=== PATIENT | female | born 1995 | race Caucasian/White ===

== ENCOUNTER 2020-01-12 09:49 | Outpatient (RCR) | payer BC, SELFPAY ==
[2020-01-12 11:16] LABS: Hematocrit 33.2 % (37.0-47.0)
[2020-01-12 13:14] LABS: Glucose 1 Hour PP 50gm Dose 219 mg/dL
[2020-01-12] MEDS: RHO(D) IMMUNE GLOBULIN 300 MCG SYRINGE IM (13:52)
[2020-01-12 13:53] LABS: HIV 1/2 Ab P24 Ag Result Negative (Negative)
[2020-01-13 07:54] LABS: Rapid Plasma Reagin Non-Reactive (NonReactive)
== END 2020-04-11 23:59 | disposition home or self-care (01) ==
LOC: ANHLAB 09:49
PROVIDERS: Visit Provider Advanced Practice Midwife
DX: Z29.13 Encounter for prophylactic Rho(D) immune globulin (principal); O36.0130 Maternal care for anti-D [Rh] antibodies, third trimester, not applicable or unspecified; Z11.4 Encounter for screening for human immunodeficiency virus [HIV]; Z3A.00 Weeks of gestation of pregnancy not specified
CPT/HCPCS: 36415; 82947; 85014; 85018; 85461; 86592; 86703; 90384; 96372; G0432; J2790

== ENCOUNTER 2020-03-09 11:05 | Outpatient (RCR) | payer BC, SELFPAY ==
[2020-03-05 21:49] VITALS: BP 120/76; PULSE 85
--- NOTE | ~2020-03-09 | US_ITS ---
EXAMINATION: US OB BPP wo non-stress DATE: 03/05/2020 17:46 INDICATION: Nonreactive nonstress test. Third trimester. TECHNIQUE: Real-time pelvic ultrasound was performed. COMPARISON: None. FINDINGS: There is a single living fetus in vertex presentation. The placenta is anterior. heart rate is 139 beats per minute (bpm). Biophysical profile performed by the technologist: breathing (30 sec sustained breathing in 30 minutes): 2 out of 2 movement (3 gross body movements in 30 minutes): 2 out of 2 tone (one episode of xfxtjui-apcbgqtpm-vfqmyhr limb movement): 2 out of 2 Amniotic fluid pocket (2 cm): 2 out of 2 Total score: 8 out of 8 IMPRESSION: 1. Single living fetus in vertex presentation. 2. Biophysical profile 8 out of 8. Reviewed, dictated and finalized at location A.
[2020-03-09 19:05] VITALS: BP 126/79; PULSE 88
== END 2020-03-21 07:35 | disposition home or self-care (01) ==
LOC: ANHOBOP 11:05
PROVIDERS: Visit Provider Obstetrics & Gynecology
DX: O24.419 Gestational diabetes mellitus in pregnancy, unspecified control (principal); Z3A.35 35 weeks gestation of pregnancy; Z3A.36 36 weeks gestation of pregnancy
CPT/HCPCS: 59025; 76819

== ENCOUNTER 2020-03-10 10:40 | Outpatient (CLI) | payer BC, SELFPAY ==
[2020-03-10 11:25] VITALS: BP 131/83; PULSE 99
--- NOTE | 2020-03-10 11:44 | PC.NURSE ---
Pt came in from birthing class stating that she had some leaking while in the shower this morning after having sex. Pt denies any leaking currently, stated her underwear were wet once when she went to the restroom. Pt denies having contractions. ROM plus negative, NST reactive. on unit, reviewed strip and gave discharge order home. Pt instructed to come back if she thinks her water broke, doesn't feel the baby move, has bleeding, or has more intense contractions that are closer together.
== END 2020-03-10 11:35 | disposition home or self-care (01) ==
LOC: ANHOBOP 11:23 → ANHLDR 11:24
PROVIDERS: Visit Provider Obstetrics & Gynecology
DX: O42.90 Premature rupture of membranes, unspecified as to length of time between rupture and onset of labor, unspecified weeks of gestation (principal); Z3A.00 Weeks of gestation of pregnancy not specified
CPT/HCPCS: 59025; 84112; 99199

== ENCOUNTER 2020-03-14 06:06 | Inpatient (IN) | payer BC, SELFPAY ==
[2020-03-14] VITALS (94 sets, daily range): BP systolic 103–136; BP diastolic 63–86; PULSE 64–102; TEMP 36.3–36.6; O2SAT 99–100; BMI 28.3
--- NOTE | 2020-03-14 07:12 | WPDHPUPDATE1 ---
History and Physical Update Update Date/Time: 03/14/20 07:12 This patient is a 24 y/o G1 at 37 weeks with SROM - to augment. Reassuring status.GBS - Neg History and Physical has been reviewed, including an updated exam of the patient. There are NO changes in the patient's condition. Risks, benefits, and alternatives have been discussed and questions answered. Patient agrees to proceed with procedure.
--- NOTE | 2020-03-14 07:13 | WPDANESEPP ---
Anes - Eval Pre Procedure Procedure: Labor Epidural <Kj Ibarra CRNA - Last Filed: 03/14/20 07:13> labor pain management <Eleonora Avendano CRNA - Last Filed: 03/14/20 11:16> Date/Time: 03/14/20 07:13 <Kj Ibarra CRNA - Last Filed: 03/14/20 07:13> Surgeon: Alicia <Eleonora Avendano CRNA - Last Filed: 03/14/20 11:16> Preop Diagnosis: Pain during labor <Eleonora Avendano CRNA - Last Filed: 03/14/20 11:16> Pre Op Diagnosis: Leaking <Kj Ibarra CRNA - Last Filed: 03/14/20 07:13> Patient Data Age: 24 Gender: F Height: Weight: <Kj Ibarra CRNA - Last Filed: 03/14/20 07:13> height: 65 weight: 79.5 kg bmi: 28.3 <Eleonora Avendano CRNA - Last Filed: 03/14/20 11:16> Last Vital Signs Pulse 81 03/14/20 07:00 BP 113/77 03/14/20 07:00 <Kj Ibarra CRNA - Last Filed: 03/14/20 07:13> Allergies Allergy/AdvReac Type Severity Reaction Status Date / Time No Known Allergies Allergy Verified 03/14/20 07:22 <Kj Ibarra CRNA - Last Filed: 03/14/20 07:13> Home Medications Medication Instructions Recorded Confirmed Type PNV cmb#95-ferrous fumarate-FA 1 tablet PO DAILY 03/05/20 03/14/20 History [] <Kj Ibarra CRNA - Last Filed: 03/14/20 07:13> PLT 223 <Eleonora Avendano CRNA - Last Filed: 03/14/20 11:16> : gestational age (EDC 04/04/20) <Eleonora Avendano CRNA - Last Filed: 03/14/20 11:16> Patient hx anesthesia problems: none <Kj Ibarra CRNA - Last Filed: 03/14/20 07:13> none <Eleonora Avendano CRNA - Last Filed: 03/14/20 11:16> Family hx anesthesia problems: none <Kj bIarra CRNA - Last Filed: 03/14/20 07:13> none <Eleonora Avendano CRNA - Last Filed: 03/14/20 11:16> [facility] Family History Family History: Family History (Updated 03/14/20 @ 08:14 by Ni Conrda RN) Mother , Unsure of primary site Liver cancer Sibling Scoliosis Spinal cord cysts Required multiple surgeries. No feeling in bottom of feet. Father Diabetes type 2, controlled <Kj Ibarra CRNA - Last Filed: 03/14/20 07:13> Social History Social History: Social History Smoking status: Never smoker Second hand tobacco smoke exposure: No Substance use: never Spiritual care concerns: No <Kj Ibarra CRNA - Last Filed: 03/14/20 07:13> Exam Day of Procedure 03/14/20 07:13 <Kj Ibarra CRNA - Last Filed: 03/14/20 07:13>
--- NOTE | 2020-03-14 07:30 | LDADM ---
This patient, Ema Corea, was admitted to Labor/Delivery/Recovery 108 on 03/14/20 at 06:06. Plans for labor, pain management and were discussed with patient. Patient/family oriented to hospital policies and general routines including ID bracelet, bed and alarms, visiting hours, pain management, procedures, bathroom and other care routines, personal items, smoking policy, room service/diet and guest tray routines, security routines, and visiting hours. Patient/Family are encouraged to report perceived risks to care and to ask questions if they do not understand what they are told or what they should do. See OBIX for further documentation.
[2020-03-14 07:43] LABS: Basophils Percent Auto 0.3 % (0.2-1.2); Eosinophils Absolute Auto 0.1 K/mm3 (0-0.3); Eosinophils Percent Auto 1.1 % (0-4.4); Hematocrit 35.2 % (37.0-47.0); Hemoglobin 11.4 g/dL (12.0-15.0); Immature Granulocyte Absolute 0.04 K/mm3 (0.00-0.031); Immature Granulocyte Percent A 0.4 % (0-0.5); Lymphocytes Absolute Auto 2.36 K/mm3 (0.9-3.2); Lymphocytes Percent Auto 21.3 % (18.3-44.2); Mean Corpuscular HGB Conc 32.4 g/dl (32-36); Mean Corpuscular Hemoglobin 25.6 pg (26-34); Mean Corpuscular Volume 79.1 fl (80-100); Mean Platelet Volume 9.8 fl (7.4-10.4); Monocytes Absolute Auto 0.6 K/mm3 (0.1-0.6); Monocytes Percent Auto 5.2 % (2.6-8.5); Neutrophils Absolute Auto 7.9 K/mm3 (1.3-6.7); Neutrophils Percent Auto 71.7 % (45.5-73.1); Platelet Count Result 223 k/mm3 (150-375); Red Blood Count 4.45 M/mm3 (4.2-5.4); Red Cell Distribution Width 13.7 % (11.5-14.5); White Blood Count 11.1 K/mm3 (4.5-10.0)
[2020-03-14] MEDS: LACTATED RINGERS 1,000 ML 125 ML IV CONT ×2 (08:10→19:05)
[2020-03-14] MEDS: OXYTOCIN 30 UNITS/NS 500 ML 30 UNITS/500 ML BAG IV CONT (08:11)
[2020-03-14 09:41] LABS: Glucose Point of Care 91 (65-105)
[2020-03-14 13:37] LABS: Glucose Point of Care 62 (65-105)
[2020-03-14] MEDS: AMPICILLIN 2 GM/NS 100 ML 2 GM/100 ML BAG IVPB (14:09)
[2020-03-14 14:32] LABS: Glucose Point of Care 87 (65-105)
[2020-03-14] MEDS: AMPICILLIN 1 GM/NS 50 ML 1 GM/50 ML BAG IVPB ×2 (17:39→21:55)
[2020-03-14 18:15] LABS: Glucose Point of Care 96 (65-105)
--- NOTE | 2020-03-14 18:58 | P.PNOB_ITS ---
OB - PN: Subj Subjective Date/time seen: 03/14/20 18:58 2cm 70/-2, AROM - clear, reassuring status OB - PN: Obj Data Labs CBC & Chem 7: 03/14/20 07:36 Labs: Laboratory Results - last 24 hr 03/14/20 03/14/20 03/14/20 07:36 07:36 09:39 WBC 11.1 H RBC 4.45 Hgb 11.4 L Hct 35.2 L MCV 79.1 L MCH 25.6 L MCHC 32.4 RDW 13.7 Plt Count 223 MPV 9.8 Immature Gran % (Auto) 0.4 Neut % (Auto) 71.7 Lymph % (Auto) 21.3 [place] % (Auto) 5.2 Eos % (Auto) 1.1 Baso % (Auto) 0.3 Lymph # (Auto) 2.36 [place] # (Auto) 0.6 Eos # (Auto) 0.1 Baso # (Auto) 0.0 Abs Immat Gran (auto) 0.04 H Absolute Neuts (auto) 7.9 H Absolute Nucleated RBC 0.0 Nucleated RBC % 0.0 POC Capillary Glucose 91 Blood Type O Negative Antibody Screen Negative 03/14/20 03/14/20 03/14/20 13:34 14:25 18:12 WBC RBC Hgb Hct MCV MCH MCHC RDW Plt Count MPV Immature Gran % (Auto) Neut % (Auto) Lymph % (Auto) [place] % (Auto) Eos % (Auto) Baso % (Auto) Lymph # (Auto) [place] # (Auto) Eos # (Auto) Baso # (Auto) Abs Immat Gran (auto) Absolute Neuts (auto) Absolute Nucleated RBC Nucleated RBC % POC Capillary Glucose 62 L 87 96 Blood Type Antibody Screen OB - PN A/P Time Spent With Patient Time: Total time spent is greater than 50% in coordination of care (as documented) at patient's floor/unit and/or counseling patient:
[2020-03-14 21:54] LABS: Glucose Point of Care 72 (65-105)
[2020-03-15] VITALS (109 sets, daily range): BP systolic 95–127; BP diastolic 62–84; PULSE 59–108; RESP 18; TEMP 36.5–37.9; O2SAT 97–100
[2020-03-15] MEDS: AMPICILLIN 1 GM/NS 50 ML 1 GM/50 ML BAG IVPB ×3 (02:00→09:57)
[2020-03-15 02:04] LABS: Glucose Point of Care 89 (65-105)
[2020-03-15] MEDS: ONDANSETRON INJ 4 MG/2 ML VIAL IV PUSH ×2 (02:19→13:23)
[2020-03-15] MEDS: LACTATED RINGERS 1,000 ML 125 ML IV CONT (04:44)
[2020-03-15 06:44] LABS: Glucose Point of Care 97 (65-105)
[2020-03-15 07:34] LABS: Rapid Plasma Reagin Non-Reactive (NonReactive)
--- NOTE | 2020-03-15 08:01 | P.PNOB_ITS ---
OB - PN: Subj Subjective Date/time seen: 03/15/20 08:01 Patient is at 4 cm dilation of the cervix. Has not made good progress through the night. Has had periods of decreased variability of the heart rate tracing, yet it remains reassuring . We spoke about delivery , will re-evaluate in 5 hours. patient has had ruptured membranes for 36 hours. antibiotics were started. OB - PN: Obj Data Labs CBC & Chem 7: 03/14/20 07:36 Labs: Laboratory Results - last 24 hr 03/14/20 03/14/20 03/14/20 07:36 07:36 09:39 POC Capillary Glucose 91 RPR Non-reactive Blood Type O Negative Antibody Screen Negative 03/14/20 03/14/20 03/14/20 13:34 14:25 18:12 POC Capillary Glucose 62 L 87 96 RPR Blood Type Antibody Screen 03/14/20 03/15/20 03/15/20 21:47 01:53 05:43 POC Capillary Glucose 72 89 97 RPR Blood Type Antibody Screen OB - PN A/P Time Spent With Patient Time: Total time spent is greater than 50% in coordination of care (as d ocumented) at patient's floor/unit and/or counseling patient:
[2020-03-15 10:06] LABS: Glucose Point of Care 118 (65-105)
[2020-03-15 11:59] LABS: Glucose Point of Care 91 (65-105)
[2020-03-15] MEDS: OXYTOCIN 30 UNITS/NS 500 ML 30 UNITS/500 ML BAG 999 UNITS IV CONT (14:07)
[2020-03-15] MEDS: miSOPROStol 200 MCG TABLET 1000 MCG (14:09)
--- NOTE | 2020-03-15 14:17 | PM.OBPRVD ---
OB - Delivery Note Procedure Delivery date: 03/15/20 Intrapartal events: None Induction method: AROM and per pitocin protocol Delivery augmentation: rupture of membranes Delivery monitor: external FHT and internal uterine Route of delivery: Episiotomy description: Midline Laceration description: None Delivery repair: vicryl Estimated blood loss (mL): 250 Anesthesia type: Epidural Disposition: floor Baby Date of : 03/15/20 Time of : 13:59 Weeks of gestation at delivery: 37 Infant gender: Female Weight (pounds): 6 presentation: vertex position: Left Occiput Anterior Placenta delivery description: Spontaneous cord vessel description: 3 Vessels score one minute: 8 score five minutes: 9
[2020-03-15] MEDS: OXYTOCIN 30 UNITS/NS 500 ML 30 UNITS/500 ML BAG 125 UNITS IV CONT (14:50)
[2020-03-15] MEDS: IBUPROFEN 600 MG TABLET PO (16:49)
[2020-03-15] MEDS: ACETAMINOPHEN 325 MG TABLET 650 MG PO (16:50)
--- NOTE | 2020-03-15 17:45 | PC.NURSE ---
Patient transferred to post room # 288 via. Support person present. Oriented to unit, room, information board, rooming in, admission packet and security measures. Patient verbalizes understanding.
--- NOTE | 2020-03-15 18:30 | PC.NURSE ---
This RN took pts initial temp and it was 100.2. Called to delivery nurse that stated that Pt did not have temp while in her care. Will inform night nurse of this.
[2020-03-16] MEDS: IBUPROFEN 600 MG TABLET PO ×3 (00:01→13:38)
[2020-03-16] MEDS: ACETAMINOPHEN 325 MG TABLET 650 MG PO (00:02)
[2020-03-16 00:10] VITALS: BP 133/69; PULSE 99; RESP 20; TEMP 36.9; O2SAT 100
[2020-03-16 05:11] LABS: Hematocrit 27.9 % (37.0-47.0); Hemoglobin 8.7 g/dL (12.0-15.0)
--- NOTE | 2020-03-16 07:38 | PM.OBPNVD ---
OB - PN: Subj Subjective Date/time seen: 03/16/20 07:38 Patient comments: no complaints baby status: doing well OB - PN: Obj Data Labs CBC & Chem 7: 03/16/20 04:33 Labs: Laboratory Results - last 24 hr 03/15/20 03/15/20 03/16/20 09:59 11:55 04:33 Hgb 8.7 L Hct 27.9 L POC Capillary Glucose 118 H 91 OB - PN A/P Plan day: 1 Plan: routine care Time Spent With Patient Time: Total time spent is greater than 50% in coordination of care (as documented) at patient's floor/unit and/or counseling patient: Exam Const: General: comfortable Psych: Appearance: grossly normal Affect: normal affect Attitude: cooperative Judgement: Good judgement present (Psych)
[2020-03-16 07:50] VITALS: BP 109/69; PULSE 94; RESP 18; TEMP 36.4; O2SAT 99
[2020-03-16] MEDS: POLYSACCHARIDE IRON COMPLEX 150 MG CAPSULE PO ×2 (07:54→16:16)
[2020-03-16] MEDS: DOCUSATE SODIUM 100 MG CAPSULE PO ×2 (07:54→16:16)
[2020-03-16] MEDS: MULTIVIT/MIN/PREN/FOL AC/IRON TABLET 1 TAB PO (07:55)
[2020-03-16] MEDS: LANOLIN (LANSINOH) 7.5 GM CREAM 1 APPLIC TOPICAL (07:55)
--- NOTE | 2020-03-16 14:35 | PC.NURSE ---
Assisted mother with her breastpump due to ineffective feeding. Instructions given on breast pump care and usage, pumping schedule, nipple care, and collection and storage of breast milk. Encouraged [id number], breast massage and manual expression to stimulate supply. Assessed patient for correct flange size, placement and draw. Patient verbalizes and demonstrates understanding of instructions.
--- NOTE | 2020-03-16 16:48 | WPDANLDPN2 ---
Anes-Prog Note L&D Date/Time: 03/16/20 16:48 Comfortable throughout: labor and delivery Neuraxial method: epidural Epidural/Spinal procedure site: clean & non-tender Neuro status: Neuro function grossly intact. Cardiovascular status: normal Respiratory status: normal Airway patency: baseline Mental status: baseline Post-Op hydration status: normal Vital Signs: Last Vital Signs Temp 98.4 F 03/16/20 00:10 Pulse 99 03/16/20 00:10 Resp 20 03/16/20 00:10 BP 133/69 03/16/20 00:10 Pulse Ox 100 03/16/20 00:10 Post-procedural complaints: none Patient feedback: Patient satisfied with anesthetic care.
[2020-03-16 17:30] VITALS: BP 115/60; PULSE 88; RESP 16; TEMP 36.6; O2SAT 99
--- NOTE | 2020-03-16 17:50 | PC.NURSE ---
Addendum entered by Aimee Saucedo RN 03/16/20 18:22: feeding observed at 1530 Original Note: Mother called out for observation of feeding. Mother states infant was rooting and she put infant to breast independently. Mother was able to independently latch infant with appropriate positioning/alignment. Infant was able to latch correctly. Infant nursed eagerly, with steady draws and frequent swallowing noted. Reviewed signs of a correct latch, effective nursing and suck swallow ratio. Infant was able to maintain latch without discomfort to mother. Nipple care reviewed. Instructed mother to call out for RN assistance if she is unable to latch infant for feeding or she has discomfort with nursing. Instructed feeding should be initiated three hours from start of last feeding or if feeding cues are noted before. Mother voiced understanding of information shared.
--- NOTE | 2020-03-16 18:16 | PC.NURSE ---
Mother called out for assist with feeding. Assisted with feedings at 0930 & 1515 Reviewed feeding cues, frequencies, duration of feedings, feeding elimination flow sheet, and signs of adequate intake. Demonstrated stimulation techniques to wake for feeding. Assisted with to breast. Reviewed positioning/alignment in cross cradle, holding breast in U hold and guided asymmetrical latch on. Discussed rational for each. remained sleepy and was unable to latch correctly. Attempt each time at least 10-15 minutes. Mother supplemented formula. Feeding plan initiated at 0930 attempt, to put infant to breast each feeding for 10-15 minutes, if infant does not nurse then have FOB supplement and mother will pump 15 minutes.
[2020-03-17] MEDS: IBUPROFEN 600 MG TABLET PO ×2 (00:08→10:05)
[2020-03-17 08:55] VITALS: BP 123/74; PULSE 98; RESP 18; TEMP 36.6
[2020-03-17] MEDS: MULTIVIT/MIN/PREN/FOL AC/IRON TABLET 1 TAB PO (10:04)
[2020-03-17] MEDS: DOCUSATE SODIUM 100 MG CAPSULE PO (10:05)
[2020-03-17] MEDS: POLYSACCHARIDE IRON COMPLEX 150 MG CAPSULE PO (10:05)
--- NOTE | 2020-03-17 11:07 | PM.OBPNVD ---
OB - PN: Subj Subjective Date/time seen: 03/17/20 11:07 OB - PN: Obj Data Labs CBC & Chem 7: 03/16/20 04:33 OB - PN A/P Plan day: 2 Plan: routine care and discharge home (Follow up 4 weeks) Time Spent With Patient Time: Total time spent is greater than 50% in coordination of care (as documented) at patient's floor/unit and/or counseling patient: Time with patient: less than 15 minutes Review of Systems Review of Systems: All systems reviewed & are unremarkable except as noted in HPI and below Exam Const: General: comfortable Resp: Effort & Inspection: normal respiratory effort Cardio: Rate: regular rate Psych: Appearance: grossly normal Affect: normal affect Attitude: cooperative Judgement: Good judgement present (Psych)
[2020-03-19 08:08] VITALS: BP 120/71; PULSE 85; RESP 16; TEMP 36.7; O2SAT 98
--- NOTE | 2020-04-11 12:06 | PM.OBDSVD ---
DS: Admitting Diagnosis Admitting Diagnosis Admitting Diagnosis: Leaking DS: Discharge Diagnosis Discharge Diagnosis (1) Term delivered: Code(s): O80 - Encounter for full-term uncomplicated delivery Status: Acute OB - DS: Summary OB Procedures : NST and Ultrasound OB Procedures Intrapartum: Spontaneous Vag Delivery OB Procedures: : None Peripartum Data Delivery Method: Natural Vaginal Status at Discharge Functional status at discharge: independent ambulation Time Spent with Patient Time attestation: Total time spent providing and/or coordinating discharge services: Discharge Plan Discharge Attending physician on discharge: Rachele Vargas Consulting providers: Hortensia Powers ; Kelle Tsai Discharging Clinician: Kelle Tsai Patient Disposition: Home, Self-Care Activity: no driving Diet: as tolerated Discharge Instructions: Education: Mom and Baby Guide Given to: Mother Follow-Up: Call your delivering provider's office for an appointment to be seen in: 4 Weeks Mom and baby should come to the [facility] for the follow-up appointment. Appointment Date/Time: March 19, 2020 at 8:00 am What to expect at your follow-up visit: Blood Pressure Check Physical Assessment Call [phone] if you are unable to keep your appointment time. BREAST CARE: 1. Wear a snug supportive bra. 2. For engorgement discomfort: Breast Feeding: A. Apply warm moist washcloths B. Express milk as needed to relieve engorgement C. Wear loose clothing Bottle Feeding: A. May apply ice packs 3. For sore nipples: A. Identify correct latch-on B. Apply warm moist washcloths before and after nursing C. Air dry nipples after nursing D. May apply Lansinoh cream to nipples EPISIOTOMY/PERINEAL CARE: 1. Until bleeding stops, use your josefa bottle after urinating 2. Change your pad frequently throughout the day 3. You may take sitz baths several times a day (fill your bathtub with warm water and soak for 20 minutes.) Do NOT bathe in the water 4. No tub baths until seen by your physician - You may shower ACTIVITY: 1. Rest as much as possible. 2. Do not exercise or lift anything heavier than your baby (such as laundry or other children.) 3. Avoid stairs or driving as much as possible. 4. Do not put anything into the vagina. No douching, tampons, or sexual activity until seen by physician. NOTIFY PHYSICIAN IF YOU HAVE ANY QUESTIONS OR IF ANY OF THE FOLLOWING SYMPTOMS OCCUR: 1. If your episiotomy or incision becomes red, swollen, or more painful than what you have experienced in the hospital. 2. If your vaginal bleeding becomes foul smelling. 3. If your vaginal bleeding becomes more heavy than a period or if your bleeding changes from pink to bright red. However, you may pass an occasional walnut-sized clot once or twice for the first week . 4. If you experience a sharp, shooting pain in you calves. 5. If you discover a hard, reddened area on your breast or if you experience flu-like symptoms. 6. Temperature of 100.4 or higher DIET: 1. Eat regular, well-balanced meals. 2. Drink plenty of fluids daily. If , drink to thirst. Stand Alone Forms: General Discharge Information Follow-up/Referrals: Rachele Vargas MD [Physician] - Discharge Medications: New polysaccharide iron complex 150 mg iron Capsule 150 mg PO BIDWM Qty: 60 RF: 0 Continued PNV cmb#95-ferrous fumarate-FA [] 28 mg iron- 800 mcg Tablet 1 tablet PO DAILY RF: 0 Date of admission: 03/14/20 06:06 Primary Care Provider: PHYSICIAN,CORE MICROARCHITECT Admitting Provider: Rachele Vargas Discharge Date/Time: 03/17/20 13:33 Attending physician on admission: Rachele Vargas
== END 2020-03-17 13:33 | disposition home or self-care (01) | DRG 807 ==
LOC: ANHLDR 07:12 → ANHOB2 03-15 17:47
PROVIDERS: Admitting Provider Obstetrics & Gynecology; Visit Provider Obstetrics & Gynecology
DX: O24.420 Gestational diabetes mellitus in childbirth, diet controlled (principal); Z37.0 Single live birth; O76 Abnormality in fetal heart rate and rhythm complicating labor and delivery; O69.81X0 Labor and delivery complicated by cord around neck, without compression, not applicable or unspecified; Z3A.37 37 weeks gestation of pregnancy
CPT/HCPCS: 36415; 84112; 85014; 85018; 85025; 86592; 86850; 86900; 86901; A9270; J0290; J2405; J2590; J7120

== ENCOUNTER 2021-08-03 15:19 | Emergency (ER) | payer BC, SELFPAY ==
[2021-08-03 15:22] VITALS: BP 152/79; PULSE 91; RESP 17; TEMP 36.5; O2SAT 100
[2021-08-03 16:08] LABS: Basophils Percent Auto 0.3 % (0.2-1.2); Eosinophils Absolute Auto 0.2 K/mm3 (0-0.3); Eosinophils Percent Auto 1.6 % (0-4.4); Hematocrit 36.6 % (37.0-47.0); Hemoglobin 12.4 g/dL (12.0-15.0); Immature Granulocyte Absolute 0.04 K/mm3 (0.00-0.031); Immature Granulocyte Percent A 0.4 % (0-0.5); Lymphocytes Absolute Auto 2.66 K/mm3 (0.9-3.2); Lymphocytes Percent Auto 23.5 % (18.3-44.2); Mean Corpuscular HGB Conc 33.9 g/dl (32-36); Mean Corpuscular Hemoglobin 28.1 pg (26-34); Mean Platelet Volume 9.7 fl (7.4-10.4); Monocytes Absolute Auto 0.4 K/mm3 (0.1-0.6); Monocytes Percent Auto 3.9 % (2.6-8.5); Neutrophils Percent Auto 70.3 % (45.5-73.1); Platelet Count Result 203 k/mm3 (150-375); Red Blood Count 4.41 M/mm3 (4.2-5.4); White Blood Count 11.3 K/mm3 (4.5-10.0)
[2021-08-03 16:18] LABS: INR 1.1; Prothrombin Time 13.6 Seconds (11.1-14.7)
[2021-08-03 16:19] LABS: Partial Thromboplastin Time 26.9 SECONDS (22.3-36.8)
[2021-08-03 16:20] LABS: Alanine Aminotransferase 12 U/L (4-35); Albumin Level 4.1 g/dL (3.5-5.1); Alkaline Phosphatase 66 U/L (38-126); Anion Gap 7 mmol/L (8-16); Aspartate Amino Transferase 17 U/L (14-36); Bilirubin,Total 0.2 mg/dL (0.2-1.3); Blood Urea Nitrogen 12 mg/dL (7-17); Calcium 9.1 mg/dL (8.4-10.2); Carbon Dioxide 24 mmol/L (22-30); Chloride 106 mmol/L (98-107); Estimated CRCL calculation 112 ml/min; Estimated Glomerular Filt Rate > 60; Glucose 122 mg/dL (65-110); Potassium 3.6 mmol/L (3.4-5.0); Sodium 137 mmol/L (137-145)
--- NOTE | 2021-08-03 16:44 | ED.PREGNANCY ---
HPI - General Chief complaint: Vaginal Bleeding Stated complaint: 11wks preg, bleeding Time Seen by Provider: 08/03/21 15:39 Source: patient Mode of arrival: ambulatory Limitations: no limitations History of Present Illness HPI Narrative: This is a 25 year old , about 11 weeks that presents to the ER for vaginal bleeding today. Reports she started having pelvic cramping yesterday. Today she started to note some vaginal bleeding. Her OB is Dr. Vargas. She has had a normal ultrasound this . Denies fever, or vomiting. Related Data Home Medications Medication Instructions Recorded Confirmed PNV cmb#95-ferrous fumarate-FA 1 tablet PO DAILY 03/05/20 03/14/20 [] Allergies Allergy/AdvReac Type Severity Reaction Status Date / Time No Known Allergies Allergy Verified 03/14/20 07:22 Review of Systems Review of Systems: CONSTITUTIONAL: Denies fever GASTROINTESTINAL: Reports pelvic cramping All systems reviewed & are unremarkable except as noted in HPI and below PMFSH Past Medical History Medical History (Updated 08/03/21 @ 18:47 by Leia Bright PA-C) No active medical problems Family History Family History (Updated 03/14/20 @ 08:14 by Ni Conrad RN) Mother , Unsure of primary site Liver cancer Sibling Scoliosis Spinal cord cysts Required multiple surgeries. No feeling in bottom of feet. Father Diabetes type 2, controlled Social History Social History Smoking status: Never smoker Second hand tobacco smoke exposure: No Substance use: never Spiritual care concerns: No Exam Narrative: GENERAL: Well-appearing, well-nourished, and in no acute distress. HEAD: Normocephalic, atraumatic. EYES: EOMI. CHEST: Clear to auscultation. No respiratory distress. No wheezes rales or rhonchi HEART: Regular rate and rhythm. No murmur heard. Normal peripheral pulses. ABDOMEN: Soft, nontender, nondistended, normal active bowel sounds. EXTREMITIES: Normal range of motion. No edema. SKIN: Warm, dry, no rash. NEURO: No focal deficits. Alert and oriented x3. PSYCH: Normal mood and affect PELVIC: Small amount of dark red blood in the vaginal vault Course Consultations Consultation #1: Spoke with Dr. Vargas about patient and workup who will follow up in clinic Date: 08/03/21 Time: 18:30 Vital Signs Vital signs: Vital Signs Temperature 97.7 F 08/03/21 15:22 Pulse Rate 91 08/03/21 15:22 Respiratory Rate 17 08/03/21 15:22 Blood Pressure 152/79 H 08/03/21 15:22 Pulse Oximetry 100 08/03/21 15:22 Temperature 97.7 F 08/03/21 15:22 Pulse Rate 91 08/03/21 15:22 Respiratory Rate 17 08/03/21 15:22 Blood Pressure 152/79 H 08/03/21 15:22 Pulse Oximetry 100 08/03/21 15:22 MDM - OB/Uterine Contractions MDM Narrative Medical decision making narrative: This is a 25-year-old female that presents to the emergency department for vaginal bleeding. About 11 weeks . Associated with some pelvic cramping. Her vitals are stable. CBC with mild leukocytosis to 11.3. Her hemoglobin is 12.4. Metabolic panel without concerning findings. Patient is O-. Given a dose of RhoGam. I did do a bedside ultrasound which showed intrauterine with positive heart tones. Patient and family updated on case findings. Spoke with Dr. Vargas about patient and workup who will follow up in clinic. Patient is stable and felt appropriate for further outpatient valuation. She was given warnings to return to the ER Lab Data Attestation: I reviewed the patient's lab results. Result diagrams: 08/03/21 15:55 08/03/21 15:55 Labs: Lab Results 08/03/21 08/03/21 08/03/21 Range/Units 15:55 15:55 15:55 WBC 11.3 H (4.5-10.0) K/mm3 RBC 4.41 (4.2-5.4) M/mm3 Hgb 12.4 D (12.0-15.0) g/dL Hct 36.6 L (37.0-47.0) % MCV 83.0 (80-100) f
[2021-08-03] MEDS: RHO(D) IMMUNE GLOBULIN 300 MCG/2 ML SYRINGE IM (19:03)
[2021-08-03 19:10] VITALS: BP 120/86; PULSE 68; RESP 18; O2SAT 99
== END 2021-08-03 19:10 | disposition home or self-care (01) ==
PROVIDERS: Physician Assistant; Emergency Provider Emergency Medicine; PCP Family Medicine
DX: O46.91 Antepartum hemorrhage, unspecified, first trimester (principal); Z3A.11 11 weeks gestation of pregnancy
CPT/HCPCS: 36415; 80053; 84702; 85025; 85461; 85610; 85730; 90384; 96372; 99284; J2790

== ENCOUNTER 2021-10-23 17:10 | Outpatient (RCR) | payer BC, OTHER, SELFPAY ==
[2021-10-24] MEDS: RHO(D) IMMUNE GLOBULIN 300 MCG/2 ML SYRINGE IM (18:32)
== END 2022-01-21 23:59 | disposition home or self-care (01) ==
LOC: ANHLAB 17:10
PROVIDERS: PCP Family Medicine; Visit Provider Advanced Practice Midwife
DX: Z29.13 Encounter for prophylactic Rho(D) immune globulin (principal); O36.0130 Maternal care for anti-D [Rh] antibodies, third trimester, not applicable or unspecified; Z3A.00 Weeks of gestation of pregnancy not specified
CPT/HCPCS: 36415; 85461; 90384; 96372; J2790

== ENCOUNTER 2022-02-14 11:30 | Inpatient (IN) | payer OTHER, SELFPAY ==
[2022-02-14] VITALS (102 sets, daily range): BP systolic 103–145; BP diastolic 58–97; PULSE 55–183; RESP 16; TEMP 36.1–36.8; O2SAT 99–100; BMI 26.6
--- OUTSIDE RECORDS SUMMARY | 2022-02-14 11:36 | XMS_ITS | Encounter Summary ---
:1995 Author Reason for Visit None recorded. Assessment and Plan 1. Gestational diabetes mellitus, class A>1< ? non-stress test Discussion Note: None recorded.Patient educational handouts: No information available. Plan of Care Reminders Provider Appointments Induction 02/17/2022 6:30AM Hortensia Judith Pineda gle, CNM ? Nst 02/21/2022 10:30AM Nst, , EQUI P ? Ob Routine 02/21/2022 10:00AM Hortensia E Shabnam ngle, CNM ? U/S OB BPP 02/21/2022 11:00AM Ultrasound Two, TECH ? Nst 02/28/2022 10:30AM Nst, , EQUI P ? U/s Ob Growth 02/28/2022 11:00AM Ultrasound Two, TECH ? Ob Routine 02/28/2022 10:15AM Hortensia E Shabnam ngle, CNM ? 3Hr Glucose on or around 03/28/2022 RN Lonnie davenport RN Lab None recorded. ? ? Referral None recorded. ? ? Procedures None recorded. ? ? Surgeries None recorded. ? ? Imaging Non-stress Test 02/14/2022 [place] Medications Name Start Date ? ? glyburide 5 mg tablet ? Take 1 tablet every day by oral route. ? TRUEplus Lancets 28 gauge ? Medications Administered None recorded. Vitals None recorded. Results Lab Results None recorded. Allergies Code Code System Name Reaction Severity Onset NKDA ? ? ? Problems Name Status Onset Date Source ? History of Gestational Diabetes Mellitus Active 021 ? Active 08/06/2021 ? Subchorionic Hematoma Active ? ? Procedures Date Name Performed by ? 12/23/2015 Extraction of [place] Tooth Information n ot available 01/17/2022 Non-
--- OUTSIDE RECORDS SUMMARY | 2022-02-14 11:36 | XMS_ITS ---
:1995 Author Care Team Providers Name Role Phone Hortensia Powers Primary Care Provider Unavailable Allergies Code Code System Name Reaction Severity Status Onset NKDA ? Medications Name Status Start Date Stop Date ? ? Boostrix Tdap 2.5 Lf unit-8 mcg-5 Lf/0.5 mL Completed ? 01/17/2022 intramuscular syringe glyburide 2.5 mg tablet Completed ? 01/18/20 22 glyburide 5 mg tablet Active ? Not availa ble Jencycla 0.35 mg tablet Completed ? 07/17/20 21 Active ? Not available TRUEplus Lancets 28 gauge Active ? Not av ailable Problems Name Status Onset Date Source ? Detection Examination Unknown 08/22/2019 History Gestation Period, 9 Weeks Unknown 08/29/2019 Histor y Screening Unknown 09/23/2019 History , Childbirth and Puerperium Finding Unknown History Normal in Multigravida Unknown 10/17/2019 History Screening for Malformation Unknown 11/17/2019 History Unknown 12/16/2019 ? History of Gestational Diabetes Mellitus Active 021 ? Active 08/06/2021 ? Subchorionic Hematoma Active ? ? Procedures Date Name Performed by ? 12/23/2015 Extraction of [place] Tooth Information n ot available 02/09/2020 US, Obstetric, Biophysical Profile + Radha zacarias Non-stress Test [address] [place] [address] ([address]) 02/09/2020 US, Obstetric, Follow-up [place] [address] [place] [address]
--- OUTSIDE RECORDS SUMMARY | 2022-02-14 11:36 | XMS_ITS | Encounter Summary ---
:1995 Author Reason for Visit None recorded. Assessment and Plan 1. Oligohydramnios ? US, obstetric, biophysical profile + non-stress test Discussion Note: None recorded.Patient educational handouts: No information available. Plan of Care Reminders Provider Appointments Induction 02/17/2022 6:30AM Hortensia Judith Prin gle, CNM ? Nst 02/21/2022 10:30AM Nst, , EQUI P ? Ob Routine 02/21/2022 10:00AM Hortensia E Shabnam ngle, CNM ? U/S OB BPP 02/21/2022 11:00AM Ultrasound Two, TECH ? Nst 02/28/2022 10:30AM Nst, , EQUI P ? U/s Ob Growth 02/28/2022 11:00AM Ultrasound Two, TECH ? Ob Routine 02/28/2022 10:15AM Hortensia E Shabnam ngle, CNM ? 3Hr Glucose on or around RN Schedule, RN 03/28/2022 Lab None recorded. ? ? Referral None recorded. ? ? Procedures None recorded. ? ? Surgeries None recorded. ? ? Imaging US, Obstetric, 02/14/2022 [place] Biophysical Profile + Non-stress Test Medications Name Start Date ? ? glyburide [...]
--- OUTSIDE RECORDS SUMMARY | 2022-02-14 11:37 | XMS_ITS | Encounter Summary ---
:1995 Author Reason for Visit OB visit OB [id number] EDC 02/21/2022 LMP 05/17/2021 Assessment and Plan Assessment Note Patient is _32__weeks . Discuss ed plan. 1. Routine care Discussion Note: None recorded.Patient educational handouts: No information available. Plan of Care Reminders Provider Appointments Induction 02/17/2022 6:30AM Hortensia Judith Pineda gle, CNM ? Nst 02/21/2022 10:30AM Nst, , EQUI P ? Ob Routine 02/21/2022 10:00AM Hortensia E Shabnam gannle, CNM ? U/S OB BPP 02/21/2022 11:00AM [...] ? Surgeries None recorded. ? ? Imaging None recorded. ? ? Medications Name Start Date ? ? glyburide 5 mg tablet ? Take 1 tablet every day by oral route. ? TRUEplus Lancets 28 gauge ? Medications Administered None recorded. Vitals Height Weight BMI Blood Pressure 5 ft 6 in 158 lbs 25.5 kg/m2 130/80 mm[Hg] Results Lab Results None recorded. Allergies Code Code System Name Reaction Severity Onset NKDA ? ? ? Problems Name Status Onset Date Source ? History of Gestational Diabetes Mellitus Active 021 ? Active 08/06/2021 ?
--- OUTSIDE RECORDS SUMMARY | 2022-02-14 11:37 | XMS_ITS | Encounter Summary ---
:1995 Author Reason for Visit OB visit OB [id number] EDC 02/21/2022 LMP 05/17/2021 Assessment and Plan Assessment Note Patient is 37___weeks . Discuss ed plan. 1. Routine care [...] BMI Blood Pressure 5 ft 6 in 159 lbs 25.7 kg/m2 113/82 mm[Hg] Results Lab Results None recorded. Allergies Code Code System Name Reaction Severity Onset NKDA ? ? ? Problems Name Status Onset Date Source ? History of Gestational Diabetes Mellitus Active 021 ? Active 08/06/2021 ?
--- OUTSIDE RECORDS SUMMARY | 2022-02-14 11:37 | XMS_ITS | Encounter Summary ---
:1995 Author Reason for Visit OB visit Assessment and Plan Assessment Note Patient is ___weeks . Discussed plan. 1. Routine care Discussion Note: None [...] ft 6 in 158 lbs 25.5 kg/m2 108/72 mm[Hg] Results Lab Results None recorded. Allergies Code Code System Name Reaction Severity Onset NKDA ? ? ? Problems Name Status Onset Date Source ? History of Gestational Diabetes Mellitus Active 021 ? Active 08/06/2021 ? Subchorionic Hematoma Active ? ? Procedures
--- OUTSIDE RECORDS SUMMARY | 2022-02-14 11:37 | XMS_ITS | Encounter Summary ---
[...] None recorded. ? ? Imaging Non-stress Test 01/24/2022 [place] Medications Name Start Date ? ? glyburide [...] Name Performed by ? 12/23/2015 Extraction of [place] [facility] Information n ot available 01/01/2022 Non-
--- OUTSIDE RECORDS SUMMARY | 2022-02-14 11:37 | XMS_ITS | Encounter Summary ---
:1995 Author Reason for Visit None recorded. Assessment and Plan 1. Gestational diabetes mellitus, class A>1< ? US, obstetric, biophysical profile + non-stress test Discussion Note: None recorded.Patient educational handouts: No information available. Plan of Care Reminders Provider Appointments Induction 02/17/2022 6:30AM Hortensia E Prin gle, CNM ? Nst 02/21/2022 10:30AM [...] None recorded. ? ? Imaging US, Obstetric, 02/07/2022 [place] Biophysical Profile + Non-stress Test Medications Name [...]
--- OUTSIDE RECORDS SUMMARY | 2022-02-14 11:37 | XMS_ITS | Encounter Summary ---
:1995 Author Reason for Visit OB visit ob [id number] edc 02/21/2022 lmp 05/17/2021 Assessment and Plan Assessment Note Patient is _31__weeks . Discuss ed plan. 1. Routine care ? glyburide 5 mg tablet Discussion Note: None recorded.Patient educational handouts: No information available. Plan of Care Reminders Provider Appointments Induction 02/17/2022 6:30AM Hortensiaheidy antunez, CNM ? Nst 02/21/2022 10:30AM Nst, , EQUI P ? Ob Routine 02/21/2022 10:00AM Hortensiaheidy gannle, CNM ? U/S OB BPP 02/21/2022 11:00AM Ultrasound Two, TECH ? Nst 02/28/2022 10:30AM Nst, , EQUI P ? U/s Ob Growth 02/28/2022 11:00AM Ultrasound Two, TECH ? Ob Routine 02/28/2022 10:15AM Hortensiaheidy gannle, CNM ? 3Hr Glucose on or around 03/28/2022 VEENA advenport RN Lab None recorded. ? ? Referral [...] BMI Blood Pressure 5 ft 6 in 157 lbs 25.3 kg/m2 114/71 mm[Hg] Results Lab Results None recorded. Allergies Code Code System Name Reaction Severity Onset NKDA ? ? ? Problems Name Status Onset Date Source ? History of Gestational Diabetes Mellitus Active 021 ?
--- OUTSIDE RECORDS SUMMARY | 2022-02-14 11:37 | XMS_ITS | Encounter Summary ---
[...] None recorded. ? ? Imaging Non-stress Test 01/01/2022 [place] Medications Name Start Date ? ? glyburide [...] Name Performed by ? 12/23/2015 Extraction of [place] [facility] Information n ot available 12/04/2021 US,
--- OUTSIDE RECORDS SUMMARY | 2022-02-14 11:37 | XMS_ITS | Encounter Summary ---
[...] None recorded. ? ? Imaging Non-stress Test 02/07/2022 [place] Medications Name Start Date ? ? glyburide [...] Name Performed by ? 12/23/2015 Extraction of [place] [facility] Information n ot available 01/10/2022 Non-
--- OUTSIDE RECORDS SUMMARY | 2022-02-14 11:37 | XMS_ITS | Encounter Summary ---
:1995 Author Reason for Visit None recorded. Assessment and Plan 1. condition affecting obstetrica l care of mother ? non-stress test Discussion Note: None recorded.Patient [...] None recorded. ? ? Imaging Non-stress Test 01/31/2022 [place] Medications Name Start Date ? ? glyburide [...] Name Performed by ? 12/23/2015 Extraction of [place] [facility] Information n ot available 01/01/2022
--- OUTSIDE RECORDS SUMMARY | 2022-02-14 11:37 | XMS_ITS | Encounter Summary ---
[...] None recorded. ? ? Imaging Non-stress Test 01/17/2022 [place] Medications Name Start Date ? ? glyburide [...] Name Performed by ? 12/23/2015 Extraction of [place] [facility] Information n ot available 01/01/2022 Non-
--- OUTSIDE RECORDS SUMMARY | 2022-02-14 11:37 | XMS_ITS | Encounter Summary ---
:1995 Author Reason for Visit None recorded. Assessment and Plan 1. Gestational diabetes mellitus, class A>1< ? US, obstetric, follow-up ? US, obstetric, biophysical profile + non-stress [...] None recorded. ? ? Imaging US, Obstetric, Follow-up 01/31/2022 [place] ? US, Obstetric, 01/31/2022 [place] Biophysical Profile + Non-stress Test Medications Name Start Date ? ? glyburide 5 mg tablet ? Take 1 tablet every day by oral route. ? TRUEplus Lancets 28 gauge ? Medications Administered None recorded. Vitals None recorded. Results Lab Results None recorded. Allergies Code Code System Name Reaction Severity Onset NKDA ? ? ? Problems Name Status Onset Date Source ? History of Ges
--- OUTSIDE RECORDS SUMMARY | 2022-02-14 11:37 | XMS_ITS | Encounter Summary ---
[...] ft 6 in 159 lbs 25.7 kg/m2 116/74 mm[Hg] Results Lab Results None recorded. Allergies Code Code System Name Reaction Severity Onset NKDA ? ? ? Problems Name Status Onset Date Source ? History of Gestational Diabetes Mellitus Active 021 ? Active 08/06/2021 ? Subchorionic Hematoma Active ? ? Procedures
--- OUTSIDE RECORDS SUMMARY | 2022-02-14 11:37 | XMS_ITS | Encounter Summary ---
[...] None recorded. ? ? Imaging US, Obstetric, 01/24/2022 [place] Biophysical Profile + Non-stress Test Medications Name [...]
--- OUTSIDE RECORDS SUMMARY | 2022-02-14 11:37 | XMS_ITS | Encounter Summary ---
:1995 Author Reason for Visit None recorded. Assessment and Plan 1. Gestational diabetes mellitus, class A>1< ? US, obstetric, follow-up Discussion Note: None recorded.Patient educational handouts: No [...] None recorded. ? ? Imaging US, Obstetric, 01/01/2022 [place] Follow-up Medications Name Start Date ? ? glyburide [...]
--- OUTSIDE RECORDS SUMMARY | 2022-02-14 11:37 | XMS_ITS | Encounter Summary ---
:1995 Author Reason for Visit None recorded. Assessment and Plan 1. Oligohydramnios ? US, obstetric, limited Discussion Note: None recorded.Patient educational handouts: No [...] None recorded. ? ? Imaging US, Obstetric, Limited 01/27/2022 [place] Medications Name Start Date ? ? glyburide [...] Name Performed by ? 12/23/2015 Extraction of [place] [facility] Information n ot available
--- OUTSIDE RECORDS SUMMARY | 2022-02-14 11:37 | XMS_ITS | Encounter Summary ---
:1995 Author Reason for Visit OB visit OB [id number] EDC 02/21/2022 LMP 05/17/2021 Assessment and Plan Assessment Note Patient is _35__weeks . Discuss ed plan. 1. Routine care [...] BMI Blood Pressure 5 ft 6 in 160 lbs 25.8 kg/m2 117/75 mm[Hg] Results Lab Results None recorded. Allergies Code Code System Name Reaction Severity Onset NKDA ? ? ? Problems Name Status Onset Date Source ? History of Gestational Diabetes Mellitus Active 021 ? Active 08/06/2021 ?
--- OUTSIDE RECORDS SUMMARY | 2022-02-14 11:37 | XMS_ITS | Encounter Summary ---
:1995 Author Reason for Visit OB visit Assessment and Plan 1. Routine care 2. Gestational diabetes mellitus, class A>2< Discussion Note: None recorded.Patient educational handouts: No [...] BMI Blood Pressure 5 ft 6 in 163 lbs 26.3 kg/m2 122/84 mm[Hg] Results Lab Results None recorded. Allergies Code Code System Name Reaction Severity Onset NKDA ? ? ? Problems Name Status Onset Date Source ? History of Gestational Diabetes Mellitus Active 021 ? Active 08/06/2021 ? Subchorionic Hematoma Active ? ? Procedures Date Name Performed by ?
--- OUTSIDE RECORDS SUMMARY | 2022-02-14 11:38 | XMS_ITS | Encounter Summary ---
[...] None recorded. ? ? Imaging US, Obstetric, 12/04/2021 [place] Follow-up Medications Name Start Date ? ? [...]
--- NOTE | 2022-02-14 11:55 | LDADM ---
This patient, Ema Corea, was admitted to Labor/Delivery/Recovery 108 on 02/14/22 at 11:30. Plans for labor, pain management and were discussed with patient. Patient/family oriented to hospital policies and general routines including ID bracelet, bed and alarms, visiting hours, pain management, procedures, bathroom and other care routines, personal items, smoking policy, room service/diet and guest tray routines, security routines, and visiting hours. Patient/Family are encouraged to report perceived risks to care and to ask questions if they do not understand what they are told or what they should do. See OBIX for further documentation.
[2022-02-14] MEDS: LACTATED RINGERS 1,000 ML 125 ML IV CONT ×3 (12:00→17:36)
[2022-02-14] MEDS: AMPICILLIN 2 GM/NS 100 ML 2 GM/100 ML BAG IVPB (12:03)
[2022-02-14] MEDS: OXYTOCIN 30 UNITS/NS 500 ML 30 UNITS/500 ML BAG IV CONT (12:07)
[2022-02-14 12:16] LABS: Glucose Point of Care 68 mg/dl (65-105)
[2022-02-14 12:19] LABS: Basophils Absolute Auto 0.1 K/mm3 (0.0-0.1); Basophils Percent Auto 0.5 % (0.2-1.2); Eosinophils Absolute Auto 0.1 K/mm3 (0-0.3); Hematocrit 36.9 % (37.0-47.0); Hemoglobin 12.3 g/dL (12.0-15.0); Immature Granulocyte Absolute 0.02 K/mm3 (0.00-0.031); Immature Granulocyte Percent A 0.2 % (0-0.5); Lymphocytes Absolute Auto 2.88 K/mm3 (0.9-3.2); Lymphocytes Percent Auto 27.7 % (18.3-44.2); Mean Corpuscular HGB Conc 33.3 g/dl (32-36); Mean Corpuscular Hemoglobin 26.3 pg (26-34); Mean Platelet Volume 10.6 fl (7.4-10.4); Monocytes Absolute Auto 0.7 K/mm3 (0.1-0.6); Monocytes Percent Auto 6.3 % (2.6-8.5); Neutrophils Absolute Auto 6.7 K/mm3 (1.3-6.7); Neutrophils Percent Auto 64.3 % (45.5-73.1); Platelet Count Result 210 k/mm3 (150-375); Red Blood Count 4.67 M/mm3 (4.2-5.4); Red Cell Distribution Width 14.6 % (11.5-14.5); White Blood Count 10.4 K/mm3 (4.5-10.0)
--- NOTE | 2022-02-14 12:58 | WPDHPUPDATE1 ---
History and Physical Update Update Date/Time: 02/14/22 12:58 26-year-old multiparous female at 39 weeks gestation today who has gestational diabetes and was diagnosed with oligohydramnios today in the office. She has a very small pocket of fluid only. She had a non reactive NSTs well. We agreed to begin induction of labor. She has 3-4 cm / 80% / -1. Artificial rupture membranes was performed. She has clear fluid. She has received 1 dose of antibiotics. She is GBS positive. History and Physical has been reviewed, including an updated exam of the patient. There are NO changes in the patient's condition. Risks, benefits, and alternatives have been discussed and questions answered. Patient agrees to proceed with procedure.
--- NOTE | 2022-02-14 15:34 | WPDANESEPP ---
Anes - Eval Pre Procedure Procedure: labor epidural Date/Time: 02/14/22 15:34 Surgeon: tatyana Preop Diagnosis: pain during labor Pre Op Diagnosis: Induction of Labor Patient Data Age: 26 Gender: F Height: 1.68 m Weight: 75 kg Last Vital Signs Temp 36.3 C L 02/14/22 13:30 Pulse 74 02/14/22 15:15 BP 129/87 02/14/22 15:15 O2 Del Method Room Air 02/14/22 11:54 Allergies Allergy/AdvReac Type Severity Reaction Status Date / Time No Known Allergies Allergy Verified 03/14/20 07:22 Home Medications Medication Instructions Recorded Confirmed Type vit no.95-ferrous 1 tablet PO DAILY 03/05/20 02/14/22 History fumarate 28 mg-folic acid 800 mcg tablet () glyburide 5 mg tablet 5 mg PO DAILY 02/01/22 02/14/22 History Laboratory Tests 02/14/22 02/14/22 02/14/22 11:53 11:53 11:53 WBC 10.4 K/mm3 H K/mm3 (4.5-10.0) RBC 4.67 M/mm3 M/mm3 (4.2-5.4) Hgb 12.3 g/dL g/dL (12.0-15.0) Hct 36.9 % L % (37.0-47.0) MCV 79.0 fl L fl (80-100) MCH 26.3 pg pg (26-34) MCHC 33.3 g/dl g/dl (32-36) RDW 14.6 % H % (11.5-14.5) Plt Count 210 k/mm3 k/mm3 (150-375) MPV 10.6 fl H fl (7.4-10.4) Immature Gran % (Auto) 0.2 % % (0-0.5) Neut % (Auto) 64.3 % % (45.5-73.1) Lymph % (Auto) 27.7 % % (18.3-44.2) Webb % (Auto) 6.3 % % (2.6-8.5) Eos % (Auto) 1.0 % % (0-4.4) Baso % (Auto) 0.5 % % (0.2-1.2) Lymph # (Auto) 2.88 K/mm3 K/mm3 (0.9-3.2) Webb # (Auto) 0.7 K/mm3 H K/mm3 (0.1-0.6) Eos # (Auto) 0.1 K/mm3 K/mm3 (0-0.3) Baso # (Auto) 0.1 K/mm3 K/mm3 (0.0-0.1) Abs Immat Gran (auto) 0.02 K/mm3 K/mm3 (0.00-0.031) Absolute Neuts (auto) 6.7 K/mm3 K/mm3 (1.3-6.7) Absolute Nucleated RBC 0.0 K/mm3 K/mm3 (0.0-0.012) Nucleated RBC % 0.0 % % (0.0-0.2) POC Capillary Glucose RPR Pending Blood Type O Negative Antibody Screen Negative 02/14/22 12:13 WBC RBC Hgb Hct MCV MCH MCHC RDW Plt Count MPV Immature Gran % (Auto) Neut % (Auto) Lymph % (Auto) Webb % (Auto) Eos % (Auto) Baso % (Auto) Lymph # (Auto) Webb # (Auto) Eos # (Auto) Baso # (Auto) Abs Immat Gran (auto) Absolute Neuts (auto) Absolute Nucleated RBC Nucleated RBC % POC Capillary Glucose 68 mg/dl mg/dl (65-105) RPR Blood Type Antibody Screen Patient hx anesthesia problems: none Family hx anesthesia problems: none Results Review: All pre-operative results and documents have been reviewed as part of the pre-operative evaluation. [facility] Past Medical History Medical History (Updated 08/04/21 @ 00:00 by Rowan Yan) No active medical problems Family History Family History Mother , Unsure of primary site Liver cancer Sibling Scoliosis Spinal cord cysts Required multiple surgeries. No feeling in bottom of feet. Father Diabetes type 2, controlled Social History Social History Smoking status: Never smoker Second hand tobacco smoke exposure: No Substance use: never Spiritual care concerns: No Exam Day of Procedure 02/14/22 15:34
[2022-02-14] MEDS: AMPICILLIN 1 GM/NS 50 ML 1 GM/50 ML BAG IVPB (16:08)
[2022-02-14 16:40] LABS: Glucose Point of Care 74 mg/dl (65-105)
--- NOTE | 2022-02-14 19:37 | PM.OBPRVD ---
OB - Delivery Note Procedure Delivery date: 02/14/22 Procedure: Vaginal delivery Events: Oligohydramnios Induction method: AROM and Per Pitocin Protocol Delivery monitor: External FHT and External Uterine Route of delivery: Episiotomy description: None Laceration Description: None Specimen: Yes Quantitative Blood Loss (ml): 72 Anesthesia type: Epidural Disposition: Floor [place] Baby Date of : 02/14/22 Time of : 19:22 Weeks of gestation at delivery: 39 gender: Male Weight (pounds): 6 Weight (ounces): 13 presentation: vertex position: Left Occiput Anterior Placenta delivery description: Spontaneous Cord Vessel Description: 3 Vessels, Clamped/Cut and Delayed Cord Clamping score one minute: 8 score five minutes: 9 Narrative: Mother and infant skin to skin in stable condition.
[2022-02-14] MEDS: OXYTOCIN 30 UNITS/NS 500 ML 30 UNITS/500 ML BAG 125 UNITS IV CONT (20:07)
[2022-02-14] MEDS: WITCH HAZEL 40 PADS 1 PAD TOPICAL (23:05)
[2022-02-14] MEDS: BENZOCAINE 20% AER SPR (*SP) 56 GM CAN 1 SPRAY TOPICAL (23:05)
[2022-02-15 05:47] LABS: Hematocrit 34.8 % (37.0-47.0); Hemoglobin 11.3 g/dL (12.0-15.0)
--- NOTE | 2022-02-15 08:31 | WPDANLDPN2 ---
Anes-Prog Note L&D Date/Time: 02/15/22 08:31 Comfortable throughout: labor and delivery Epidural/Spinal procedure site: clean & non-tender Neuro status: Neuro function grossly intact. Cardiovascular status: normal Respiratory status: normal Airway patency: baseline Mental status: baseline Post-Op hydration status: normal Vital Signs: Last Vital Signs Temp 98.2 F 02/14/22 23:13 Pulse 88 02/14/22 23:13 Resp 16 02/14/22 23:13 BP 131/91 H 02/14/22 23:13 Pulse Ox 100 02/14/22 18:42 O2 Del Method Room Air 02/14/22 11:54 Pain score (VAS): 0 I/O: Intake & Output 02/14/22 02/15/22 02/15/22 23:59 07:59 15:59 Intake Total 1550 Output Total 20 Balance 1530 Post-procedural complaints: none Patient feedback: Patient satisfied with anesthetic care.
--- NOTE | 2022-02-15 13:07 | PM.OBPNVD ---
OB - PN: Subj Subjective Date/time seen: 02/15/22 13:07 Patient comments: no complaints, pain well controlled, incisional pain, tolerating diet and flatus present OB - PN: Obj Data Labs CBC & Chem 7: 02/15/22 03:53 Labs: Laboratory Results - last 24 hr 02/14/22 02/14/22 02/15/22 11:53 16:36 03:53 Hgb 11.3 L Hct 34.8 L POC Capillary Glucose 74 Blood Type O Negative Antibody Screen Negative OB - PN A/P Plan day: 1 Plan: routine care Comments: No problems, routine care, considering d/c today Time Spent With Patient Time: Total time spent is greater than 50% in coordination of care (as documented) at patient's floor/unit and/or counseling patient: Exam Const: General: comfortable, no acute distress and alert Resp: Effort & Inspection: normal respiratory effort Auscultation: no crackles, no rales and no rhonchi Cardio: Rate: regular rate Heart sounds: no click, no murmurs and no rubs GI: Inspection: non-distended GI Palp: No Tenderness to palpation present (GI) Auscultation: normal bowel sounds Other: Incision - CDI Extrem: General: normal to inspection, no pedal edema and no calf tenderness
--- NOTE | 2022-02-15 13:10 | PM.OBDSVD ---
DS: Admitting Diagnosis Discharge Date 02/15/22 Admitting Diagnosis term gesation, DS: Discharge Diagnosis Discharge Diagnosis (1) : Code(s): Z34.90 - Encounter for supervision of normal , unspecified, unspecified trimester Status: Acute (2) Oligohydramnios: Code(s): O41.00X0 - Oligohydramnios, unspecified trimester, not applicable or unspecified Status: Acute OB - DS: Summary OB Procedures : NST OB Procedures Intrapartum: Spontaneous Vag Delivery OB Procedures: : None Time Spent with Patient Time attestation: Total time spent providing and/or coordinating discharge services: DS: Data Data Completed and Pending Labs on day of discharge: Labs from last 24 hours 02/15/22 02/14/22 02/14/22 03:53 16:36 11:53 Hgb 11.3 L Hct 34.8 L POC Capillary Glucose 74 Blood Type O Negative Antibody Screen Negative Discharge Plan Discharge Attending physician on discharge: Rachele Vargas Discharging Clinician: Rachele Vargas Patient Disposition: Home, Self-Care Activity: pelvic rest Diet: regular Patient Instructions: Antibiotic Form Stand Alone Forms: General Discharge Information Follow-up/Referrals: Rachele Vargas MD [Physician] - Discharge Medications: Continued PNV cmb#95-ferrous fumarate-FA [] 28 mg iron- 800 mcg Tablet 1 tablet PO DAILY Discontinued glyburide 5 mg Tablet 5 mg PO DAILY Date of admission: 02/14/22 11:30 Primary Care Provider: Catarino Davila Admitting Provider: Rachele Vargas Attending physician on admission: Rachele Vargas Condition: Stable
[2022-02-15 17:59] VITALS: BP 107/71; PULSE 88; PULSE 94; RESP 14; RESP 16; TEMP 36.6; O2SAT 100; O2SAT 99
[2022-02-17 08:52] VITALS: BP 116/85; PULSE 83; RESP 20; TEMP 36.5; O2SAT 100
[2022-02-17 16:28] LABS: Rapid Plasma Reagin Non-Reactive (NonReactive)
== END 2022-02-15 21:05 | disposition home or self-care (01) | DRG 807 ==
LOC: ANHLDR 11:34 → ANHOB2 23:10
PROVIDERS: Advanced Practice Midwife; Admitting Provider Obstetrics & Gynecology; PCP Family Medicine; Visit Provider Obstetrics & Gynecology
DX: O41.03X0 Oligohydramnios, third trimester, not applicable or unspecified (principal); Z37.0 Single live birth; Z3A.39 39 weeks gestation of pregnancy; O24.429 Gestational diabetes mellitus in childbirth, unspecified control; O99.824 Streptococcus B carrier state complicating childbirth
CPT/HCPCS: 36415; 82948; 85014; 85018; 85025; 86592; 86850; 86900; 86901; 88307; A9270; J0290; J2590; J2795; J7120

== ENCOUNTER 2022-09-16 17:05 | Outpatient (CLI) | payer OTHER, SELFPAY ==
[2022-09-16 18:39] LABS: Strep Group A RT-PCR DETECTED (Negative)
== END 2022-09-16 17:06 | disposition home or self-care (01) ==
PROVIDERS: PCP Physician Assistant; Visit Provider Physician Assistant
DX: J02.9 Acute pharyngitis, unspecified (principal)
CPT/HCPCS: 87651

== ENCOUNTER 2023-07-10 11:02 | Outpatient (RCR) | payer OTHER, SELFPAY ==
[2023-07-10 11:53] LABS: Hematocrit 37.2 % (37.0-47.0); Hemoglobin 12.1 g/dL (12.0-15.0)
[2023-07-10 12:42] LABS: HIV 1/2 Ab P24 Ag Result Negative (Negative)
[2023-07-10] MEDS: RHO(D) IMMUNE GLOBULIN 300 MCG/2 ML SYRINGE IM (15:58)
== END 2023-10-08 23:59 | disposition home or self-care (01) ==
LOC: ANHLAB 11:02
PROVIDERS: PCP Physician Assistant; Visit Provider Advanced Practice Midwife
DX: Z11.4 Encounter for screening for human immunodeficiency virus [HIV] (principal); Z29.13 Encounter for prophylactic Rho(D) immune globulin; O36.0130 Maternal care for anti-D [Rh] antibodies, third trimester, not applicable or unspecified; Z3A.00 Weeks of gestation of pregnancy not specified
CPT/HCPCS: 36415; 85014; 85018; 85461; 86703; 86850; 86900; 86901; 90384; G0432; J2790

== ENCOUNTER 2023-07-16 08:30 | Observation (INO) | payer OTHER, SELFPAY ==
--- NOTE | 2023-07-16 08:30 | OBADM ---
This patient, Ema Corea, admitted to the OB room OB Post 116 for observation. Patient/family oriented to hospital policies and general routines including ID bracelet, bed and alarms, visiting hours, pain management, procedures, bathroom and other care routines, personal items, smoking policy, room service/diet, and visiting hours. Patient/Family are encouraged to report perceived risks to care and to ask questions if they do not understand what they are told or what they should do.
--- NOTE | 2023-07-16 08:58 | PC.NURSE ---
pt reports having cramping/ctx since yesterday on her way home from work. Pt reports that they are not consistent and she did not try timing them til this am. Pt reports feeling ctx 3-7 min apart this am. Pt has not eaten or drank anything this am. Pt denies vaginal discharge and denies pressure at this time.
[2023-07-16 09:01] VITALS: BP 108/67; PULSE 107
--- NOTE | 2023-07-16 09:10 | PC.NURSE ---
Dr. Lane notified of pt arrival with complaints of contractions. No contractions per TOCO. Discharge order received with instructions to drink 2 L of water daily
[2023-07-16 09:13] VITALS: BMI 25.6
[2023-07-16 09:15] VITALS: BP 104/62; PULSE 88
[2023-07-16 09:40] VITALS: BP 104/62; PULSE 88
--- NOTE | 2023-07-21 09:22 | PM.OBTRLD ---
OB - Triage/Final Diagnosis Visit Information Comments/Additional reasons for admission: I have assessed the risk for this patient, Ema Corea, and determined that she would benefit from observation care. Final Diagnosis (1) Irregular contractions: Code(s): O47.9 - False labor, unspecified Status: Acute
== END 2023-07-16 09:30 | disposition home or self-care (01) ==
PROVIDERS: Admitting Provider Obstetrics & Gynecology; PCP Physician Assistant; Visit Provider Obstetrics & Gynecology
DX: O47.03 False labor before 37 completed weeks of gestation, third trimester (principal); Z3A.29 29 weeks gestation of pregnancy
CPT/HCPCS: 59025; G0378; G0379

== ENCOUNTER 2023-08-14 17:30 | Emergency (ER) | payer OTHER, SELFPAY ==
--- NOTE | 2023-08-14 17:34 | ED.URI ---
HPI - URI/Sore Throat General Chief Complaint: Upper Respiratory Infection Stated Complaint: URI Time Seen by Provider: 08/14/23 17:34 Source: patient and family Mode of arrival: ambulatory Limitations: no limitations History of Present Illness HPI Narrative: Patient is a 27-year-old female who is at 33 weeks gestation with upper respiratory and flu like symptoms. She has been sick for 3 days. Her partner also has been sick for the past week. She went to the OB today and was told everything is going well with the . MD elicited complaint: fever, cough and nasal congestion Onset (ago): day(s) (3) Consistency: constant Severity: moderate Description of mucous: clear Able to tolerate fluids by mouth: Yes Exacerbating factors: nothing Relieving factors: nothing Context: sick contacts Associated symptoms: fever, chills, myalgias, headache, nasal congestion and sore throat Treatments prior to arrival: none Related Data Home Medications Medication Instructions Recorded Confirmed vit no.95-ferrous 1 tablet PO DAILY 03/05/20 08/14/23 fumarate 28 mg-folic acid 800 mcg tablet () glyburide 2.5 mg tablet 2.5 mg DAILY 08/14/23 08/14/23 Allergies Allergy/AdvReac Type Severity Reaction Status Date / Time No Known Allergies Allergy Verified 08/14/23 17:45 Review of Systems Review of Systems: All systems reviewed & are unremarkable except as noted in HPI and below Constitutional: Constitutional: Reports no additional constitutional complaints Eyes: Eyes: Reports no additional eye complaints ENT: Reports system reviewed and no additional complaints, except as documented Cardiovascular: Cardiovascular: Reports no additional cardiovascular complaints Respiratory: Respiratory: Reports no additional respiratory complaints Gastrointestinal: Gastrointestinal: Reports no additional gastrointestinal complaints Genitourinary: Genitourinary: Reports no additional female genitourinary complaints Musculoskeletal: Musculoskeletal: Reports no additional musculoskeletal complaints Integumentary/Breasts: Skin/Breast: Reports system reviewed and no additional complaints, except as docu Neurologic: Reports system reviewed and no additional complaints, except as documented Psychiatric: Psychiatric: Reports no additional psychiatric complaints Endocrine: Endocrine: Reports no additional endocrine complaints Hematologic/Lymphatic: Hematologic/Lymphatic: Reports no additional hematologic/lymphatic complaints Allergic/Immunologic: Allergic/Immunologic: Reports no additional allergic/immunologic complaints PMFSH Past Medical History Medical History No active medical problems Term delivered Family History Family History Mother , Unsure of primary site Liver cancer Sibling Scoliosis Spinal cord cysts Required multiple surgeries. No feeling in bottom of feet. Diabetes mellitus Father Diabetes type 2, controlled Hypertension Cerebrovascular accident Grandparent Diabetes mellitus Social History Social History Smoking status: Never smoker Second hand tobacco smoke exposure: No Alcohol intake: current Substance use: never Lack of Transportation: No Lack of Food: Never True Current Housing: I Have Housing Concerned About Future Housing: No Difficulty Paying Gas/Electric Bills: No Difficulty Paying for Meds: No Currently Unemployed: No Education: Bachelor's Degree Difficulty w/ Childcare or Family Care: No Spiritual care concerns: No Exam Const: General: ill appearing Nutritional Appearance: well nourished Orientation/consciousness: patient oriented x3 Limitations: no limitations HENMT: Head: normal to inspection Ears: external ears normal Face/Nose/Sinu
[2023-08-14 17:38] VITALS: BP 138/69; PULSE 133; RESP 18; TEMP 37.3; O2SAT 98
[2023-08-14 18:10] LABS: Strep Group A RT-PCR NOT DETECTED (Negative)
[2023-08-14 18:15] LABS: SARS-CoV-2 RNA PCR Negative (Negative)
[2023-08-14 18:18] LABS: Influenza A QL RT-PCR Negative (Negative); Influenza B QL RT-PCR Positive (Negative); RSV RNA, RT-PCR Negative (Negative)
== END 2023-08-14 18:42 | disposition home or self-care (01) ==
PROVIDERS: Emergency Provider Emergency Medicine; PCP Internal Medicine
DX: O26.893 Other specified pregnancy related conditions, third trimester (principal); J10.1 Influenza due to other identified influenza virus with other respiratory manifestations; Z79.899 Other long term (current) drug therapy; Z20.822 Contact with and (suspected) exposure to COVID-19; Z3A.33 33 weeks gestation of pregnancy
CPT/HCPCS: 87637; 87651; 99283

== ENCOUNTER 2023-09-23 05:56 | Inpatient (IN) | payer BC, OTHER, SELFPAY ==
[2023-09-23] VITALS (68 sets, daily range): BP systolic 111–150; BP diastolic 63–99; PULSE 70–117; RESP 16–18; TEMP 36.1–36.6; O2SAT 97–100; BMI 27.5
--- NOTE | 2023-09-23 06:42 | LDADM ---
This patient, Ema Corea, was admitted to Labor/Delivery/Recovery 105 on 09/23/23 at 05:56. Plans for labor, pain management and were discussed with patient. Patient/family oriented to hospital policies and general routines including ID bracelet, bed and alarms, visiting hours, pain management, procedures, bathroom and other care routines, personal items, smoking policy, room service/diet and guest tray routines, security routines, and visiting hours. Patient/Family are encouraged to report perceived risks to care and to ask questions if they do not understand what they are told or what they should do. See OBIX for further documentation.
[2023-09-23 07:08] LABS: Basophils Percent Auto 0.3 % (0.2-1.2); Eosinophils Absolute Auto 0.2 K/mm3 (0-0.3); Eosinophils Percent Auto 1.5 % (0-4.4); Hematocrit 40.2 % (37.0-47.0); Hemoglobin 12.5 g/dL (12.0-15.0); Immature Granulocyte Absolute 0.02 K/mm3 (0.00-0.031); Immature Granulocyte Percent A 0.2 % (0-0.5); Lymphocytes Percent Auto 45.2 % (18.3-44.2); Mean Corpuscular HGB Conc 31.1 g/dl (32-36); Mean Corpuscular Hemoglobin 25.7 pg (26-34); Mean Corpuscular Volume 82.5 fl (80-100); Mean Platelet Volume 11.4 fl (7.4-10.4); Monocytes Absolute Auto 0.4 K/mm3 (0.1-0.6); Monocytes Percent Auto 3.5 % (2.6-8.5); Neutrophils Absolute Auto 5.3 K/mm3 (1.3-6.7); Neutrophils Percent Auto 49.3 % (45.5-73.1); Platelet Count Result 217 k/mm3 (150-375); Red Blood Count 4.87 M/mm3 (4.2-5.4); Red Cell Distribution Width 14.4 % (11.5-14.5); White Blood Count 10.6 K/mm3 (4.5-10.0)
[2023-09-23 07:22] LABS: Glucose Point of Care 168 mg/dl (65-105)
[2023-09-23] MEDS: LACTATED RINGERS 1,000 ML 125 ML IV CONT ×2 (07:42→09:28)
[2023-09-23] MEDS: OXYTOCIN 30 UNITS/NS 500 ML 30 UNITS/500 ML BAG IV CONT (07:44)
--- NOTE | 2023-09-23 07:50 | WPDOBADMIT ---
Obstetrics - Admit Note Admission Note: record reviewed. No pertinent additions to the history and/or any subsequent changes in the physical findings that are not consistent with the expected course of the were found. Additions to the history and/or subsequent changes in the physical findings follow. IOL, GDM on glyburide, SVE 3-11/29-/-1 AROM small amount of clear, odorless fluid, anticipate vaginal delivery
--- NOTE | 2023-09-23 09:11 | WPDANESEPP ---
Anes - Eval Pre Procedure Procedure: Labor epidural Date/Time: 09/23/23 09:11 Surgeon: Alicia Preop Diagnosis: Pain during labor Pre Op Diagnosis: iol Patient Data Age: 27 Gender: F Height: 1.68 m Weight: 77.3 kg Last Vital Signs Temp 36.1 C L 09/23/23 09:00 Pulse 74 09/23/23 08:58 Resp 16 09/23/23 07:31 BP 134/93 H 09/23/23 08:58 Pulse Ox 98 09/23/23 07:31 O2 Del Method Room Air 09/23/23 06:39 Allergies Allergy/AdvReac Type Severity Reaction Status Date / Time No Known Allergies Allergy Verified 09/19/23 15:29 Home Medications Medication Instructions Recorded Confirmed Type vit no.95-ferrous 1 tablet PO DAILY 03/05/20 09/19/23 History fumarate 28 mg-folic acid 800 mcg tablet () glyburide 2.5 mg tablet 2.5 mg PO DAILY 08/14/23 09/23/23 History Laboratory Tests 09/23/23 09/23/23 06:24 07:17 WBC 10.6 H K/mm3 (4.5-10.0) RBC 4.87 M/mm3 (4.2-5.4) Hgb 12.5 g/dL (12.0-15.0) Hct 40.2 % (37.0-47.0) MCV 82.5 fl (80-100) MCH 25.7 L pg (26-34) MCHC 31.1 L g/dl (32-36) RDW 14.4 % (11.5-14.5) Plt Count 217 k/mm3 (150-375) MPV 11.4 H fl (7.4-10.4) Immature Gran % (Auto) 0.2 % (0-0.5) Neut % (Auto) 49.3 % (45.5-73.1) Lymph % (Auto) 45.2 H % (18.3-44.2) [place] % (Auto) 3.5 % (2.6-8.5) Eos % (Auto) 1.5 % (0-4.4) Baso % (Auto) 0.3 % (0.2-1.2) Lymph # (Auto) 4.80 H K/mm3 (0.9-3.2) Caswell # (Auto) 0.4 K/mm3 (0.1-0.6) Eos # (Auto) 0.2 K/mm3 (0-0.3) Baso # (Auto) 0.0 K/mm3 (0.0-0.1) Abs Immat Gran (auto) 0.02 K/mm3 (0.00-0.031) Absolute Neuts (auto) 5.3 K/mm3 (1.3-6.7) Absolute Nucleated RBC 0.0 K/mm3 (0.0-0.012) Nucleated RBC % 0.0 % (0.0-0.2) POC Capillary Glucose 168 H mg/dl (65-105) RPR Pending Blood Type O Negative Antibody Screen Positive Antibody Identification Pending Antigen Identification Pending ANALIA, IgG Interpret Pending ANALIA, Poly Interpret Pending ANALIA, Complement Interp Pending Patient hx anesthesia problems: none Family hx anesthesia problems: none Results Review: All pre-operative results and documents have been reviewed as part of the pre-operative evaluation. [facility], [facility] Past Medical History Medical History No active medical problems Term delivered Family History Family History Mother , Unsure of primary site Liver cancer Sibling Scoliosis Diabetes mellitus Spinal cord cysts Required multiple surgeries. No feeling in bottom of feet. Father Diabetes type 2, controlled Hypertension Cerebrovascular accident Grandparent Diabetes mellitus Cerebrovascular accident Social History Social History Smoking status: Never smoker Second hand tobacco smoke exposure: No Alcohol intake: current Substance use: never Do You Feel Safe in your Home?: Yes Lack of Transportation: No Lack of Food: Never True Current Housing: I Have Housing Concerned About Future Housing: No Difficulty Paying Gas/Electric Bills: No Difficulty Paying for Meds: No Currently Unemployed: No Education: Bachelor's Degree Difficulty w/ Childcare or Family Care: No Spiritual care concerns: No Exam Day of Procedure 09/23/23 09:11 Patient weight: overweight Heart: regular rate and rhythm Lungs: clear to auscultation Airway: Mallampati scale Neurological: alert and oriented
[2023-09-23 10:23] LABS: Glucose Point of Care 94 mg/dl (65-105)
--- NOTE | 2023-09-23 11:34 | PM.OBPRVD ---
OB - Vaginal Delivery Note Procedure Delivery date: 09/23/23 Events: Gestational Diabetes (glyburide) Induction method: AROM and Per Pitocin Protocol Delivery monitor: External FHT and External Uterine Route of delivery: Laceration Description: None Specimen: No Quantitative Blood Loss (ml): 25 Anesthesia type: Epidural Disposition: Floor [place] Baby Date of : 09/23/23 Time of : 11:23 Weeks of gestation at delivery: 39 Infant gender: Male presentation: vertex position: Left Occiput Anterior Placenta delivery description: Spontaneous Cord Vessel Description: 3 Vessels, Nuchal Cord, Loose and Delayed Cord Clamping score one minute: 9 score five minutes: 9 Narrative: mother and baby skin to skin; stable condition
[2023-09-23] MEDS: OXYTOCIN 30 UNITS/NS 500 ML 30 UNITS/500 ML BAG 999 UNITS IV CONT (11:59)
[2023-09-23] MEDS: WITCH HAZEL 40 PADS 1 PAD TOPICAL (13:07)
[2023-09-23] MEDS: ACETAMINOPHEN 325 MG TABLET 650 MG PO (13:07)
[2023-09-23] MEDS: LANOLIN (LANSINOH) 7.5 GM CREAM 1 APPLIC TOPICAL (13:09)
[2023-09-23] MEDS: BENZOCAINE 20% AER SPR (*SP) 56 GM CAN 1 SPRAY TOPICAL (13:09)
[2023-09-23 16:00] LABS: Rapid Plasma Reagin Non-Reactive (NonReactive)
--- NOTE | 2023-09-23 18:18 | PC.NURSE ---
1530 - Introductions were made and mother had just completed . Mother verbalizes she is able to independently latch with appropriate positioning and alignment. She denies any nipple discomfort and is responsively . Mother declines any additional assistance or education at this time. Mother is encouraged to call for assistance if her infant doesn?t latch, pain with latching, questions or concerns. Mother voiced understanding of information.
[2023-09-24 04:00] VITALS: BP 115/60; PULSE 75; RESP 16; TEMP 36.6; O2SAT 100
[2023-09-24] MEDS: IBUPROFEN 600 MG TABLET PO ×2 (04:23→20:36)
[2023-09-24 04:50] LABS: Hematocrit 32.8 % (37.0-47.0); Hemoglobin 10.3 g/dL (12.0-15.0)
[2023-09-24 08:35] VITALS: BP 120/82; PULSE 93; RESP 16; TEMP 36.6; O2SAT 100
--- NOTE | 2023-09-24 08:38 | WPDANLDPN2 ---
Anes-Prog Note L&D Date/Time: 09/24/23 08:38 Comfortable throughout: labor and delivery Neuraxial method: epidural Epidural/Spinal procedure site: clean & non-tender Neuro status: Neuro function grossly intact. Cardiovascular status: normal Respiratory status: normal Airway patency: baseline Mental status: baseline Post-Op hydration status: normal Vital Signs: Last Vital Signs Temp 36.6 C 09/24/23 04:00 Pulse 75 09/24/23 04:00 Resp 16 09/24/23 04:00 BP 115/60 09/24/23 04:00 Pulse Ox 100 09/24/23 04:00 O2 Del Method Room Air 09/24/23 04:00 Pain score (VAS): 0 Post-procedural complaints: none Patient feedback: Patient satisfied with anesthetic care.
[2023-09-24] MEDS: DOCUSATE SODIUM 100 MG CAPSULE PO (08:47)
[2023-09-24] MEDS: MULTIVIT/MIN/PREN/FOL AC/IRON TABLET 1 TAB PO (08:48)
--- NOTE | 2023-09-24 09:10 | PM.OBPNVD ---
OB - PN: Subj Subjective Date/time seen: 09/24/23 09:10 Patient comments: no complaints, pain well controlled, incisional pain, tolerating diet and flatus present OB - PN: Obj Data Labs 09/24/23 03:52 Labs: Laboratory Results - last 24 hr 09/23/23 09/23/23 09/24/23 06:24 10:20 03:52 Hgb 10.3 L Hct 32.8 L POC Capillary Glucose 94 RPR Non-reactive Antibody Identification Inconclusive Antigen Identification TNP ANALIA, IgG Interpret Not Performed ANALIA, Poly Interpret Neg ANALIA, Complement Interp Not Performed OB - PN A/P Plan day: 1 Plan: routine care Comments: No problems, routine care Time Spent With Patient Time: Total time spent is greater than 50% in coordination of care (as documented) at patient's floor/unit and/or counseling patient: Exam Const: General: comfortable, no acute distress and alert Resp: Effort & Inspection: normal respiratory effort Auscultation: no crackles, no rales and no rhonchi Cardio: Rate: regular rate Heart sounds: no click, no murmurs and no rubs GI: Inspection: non-distended GI Palp: No Tenderness to palpation present (GI) Auscultation: normal bowel sounds Other: Incision - CDI Extrem: General: normal to inspection, no pedal edema and no calf tenderness
--- NOTE | 2023-09-24 17:22 | PC.NURSE ---
[id number] Purposefully rounded and mother has latched to her breast. The suck/swallow ratios are not appropriate and mother was reminded of the stage, encouraged a deeper latch, gently encouraging the milk to flow to improve the suck/swallow ratios. Suck swallow ratios improved from 8:1 to 3:1. Mother denies any nipple discomfort and is responsively . Infant is currently meeting outcomes for weight, output, jaundice, and feeding frequencies of 8-12 times in 24 hours, however; at times there are low blood sugars and that is being managed by the Primary RN. Mother declines any additional assistance or education at this time. Mother is encouraged to call for assistance if her infant doesn?t latch, pain with latching, questions or concerns. Mother voiced understanding of information shared along with the mom/baby guide for an additional resource. Reported to the Primary RN.
[2023-09-25 01:30] VITALS: BP 118/68; PULSE 96; RESP 16; TEMP 36.1; O2SAT 98
[2023-09-25 07:50] VITALS: BP 137/85; PULSE 101; RESP 18; TEMP 36.6; O2SAT 100
--- NOTE | 2023-09-25 07:52 | PM.OBPNVD ---
OB - PN: Subj Subjective Date/time seen: 09/25/23 07:52 Interval history: pp day 2 breast and bottle feeding desires d/c home OB - PN: Obj Data Labs 09/24/23 03:52 OB - PN A/P Plan day: 2 Plan: routine care and discharge home Time Spent With Patient Time: Total time spent is greater than 50% in coordination of care (as documented) at patient's floor/unit and/or counseling patient: Review of Systems Review of Systems: All systems reviewed & are unremarkable except as noted in HPI and below Exam Const: General: cooperative and healthy appearing Resp: Effort & Inspection: normal respiratory effort Cardio: Rate: regular rate Skin: General skin exam: normal color Neuro: General: patient oriented x3 Extrem: Right lower extremity: normal to inspection Left lower extremity: normal to inspection Psych: Appearance: grossly normal
--- NOTE | 2023-09-25 07:56 | P.DS_ITS ---
DS: Admitting Diagnosis Discharge Date 09/25/23 Admitting Diagnosis IOL, GDMA-2 DS: Discharge Diagnosis Discharge Diagnosis (1) Vaginal delivery: Code(s): O80 - Encounter for full-term uncomplicated delivery Status: Acute OB - DS: Summary OB Procedures : None OB Procedures Intrapartum: Spontaneous Vag Delivery OB Procedures: : None Peripartum Data Laceration Description: None Time Spent with Patient Time attestation: Total time spent providing and/or coordinating discharge services: Discharge Plan Discharge Attending physician on discharge: Rachele Vargas Discharging Clinician: Hortensia Powers Patient Disposition: Home, Self-Care Activity: pelvic rest Diet: regular Patient Instructions: Antibiotic Form Stand Alone Forms: General Discharge Information Follow-up/Referrals: Hortensia Powers, CNM [Certified Nurse Citizen Participation Specialist] - 4 Weeks Discharge Medications: New ibuprofen 600 mg Tablet 600 mg PO Q6H PRN (Reason: Cramping) Qty: 30 0RF Continued PNV cmb#95-ferrous fumarate-FA [] 28 mg iron- 800 mcg Tablet 1 tablet PO DAILY Discontinued glyburide 2.5 mg tablet 2.5 mg PO DAILY Date of admission: 09/23/23 05:56 Primary Care Provider: Nishant Mendoza Admitting Provider: Rachele Vargas Attending physician on admission: Hortensia Powers Condition: Stable
[2023-09-25] MEDS: MULTIVIT/MIN/PREN/FOL AC/IRON TABLET 1 TAB PO (10:19)
[2023-09-25] MEDS: DOCUSATE SODIUM 100 MG CAPSULE PO (10:19)
--- NOTE | 2023-09-25 15:44 | PC.NURSE ---
[id number] Mother led the conversation with her experience so far, plan to feed her , and her ability to independently latch optimally without discomfort. Reminded mother to use good handwashing technique to prevent infection. Mother is feeding appropriately for growth of infant and understands stimulating to eat if needed. has had appropriate feedings in the last 24 hours meets the outcomes for weight, output, blood sugar and jaundice at this time. Mother states she is confident to continue effectively her at home, when to call for assistance, denies any additional assistance or education at this time. Reinforced understanding of milk production, transition of milk, signs of adequate intake, transition of stool, prevention/relief of engorgement, plugged ducts, mastitis, responsive watching for feeding cues, the different methods of stimulating to breastfeed 1-3 hours after the start of the last feeding, community resources, and when to call a provider using the resource of the feeding sheet and the mom and baby guide. Mother voiced understanding of the education shared. Reported to the Primary RN.
[2023-09-28 11:17] VITALS: BP 113/69; PULSE 97; RESP 18; TEMP 36.9; O2SAT 100
== END 2023-09-25 13:54 | disposition home or self-care (01) | DRG 807 ==
LOC: ANHOB2 09-25 12:12 → ANHLDR 09-28 08:56 → ANHOB2 09-28 08:56
PROVIDERS: Advanced Practice Midwife; Admitting Provider Obstetrics & Gynecology; PCP Internal Medicine; Visit Provider Obstetrics & Gynecology
DX: O24.425 Gestational diabetes mellitus in childbirth, controlled by oral hypoglycemic drugs (principal); Z37.0 Single live birth; O69.81X0 Labor and delivery complicated by cord around neck, without compression, not applicable or unspecified; Z3A.39 39 weeks gestation of pregnancy; O43.123 Velamentous insertion of umbilical cord, third trimester
CPT/HCPCS: 36415; 82948; 85014; 85018; 85025; 86592; 86850; 86880; 86900; 86901; 86902; A9270; J2590; J2795; J7120